=== PATIENT | female | born 1950 | race Caucasian/White ===

== ENCOUNTER → 2024-05-09 06:39 | Day surgery (SDC) | payer OTHER, SELFPAY ==
[2024-05-09 07:56] LABS: Glucose - Point of Care 130 mg/dl (70-99)
== END ==
LOC: GI 06:39
PROVIDERS: ATTENDING PHYSICIAN Internal Medicine
DX: Z12.11 Encounter for screening for malignant neoplasm of colon (principal); Z86.010 Personal history of colon polyps; K64.8 Other hemorrhoids; K64.4 Residual hemorrhoidal skin tags; D12.0 Benign neoplasm of cecum; D12.3 Benign neoplasm of transverse colon; K63.5 Polyp of colon
CPT/HCPCS: 45385; 45380; 88305; 82962

== ENCOUNTER → 2024-10-03 08:23 | Outpatient (REF) | payer OTHER, SELFPAY | LOC: HWWDC 08:23 | PROVIDERS: ATTENDING PHYSICIAN Physician Assistant; FAMILY PHYSICIAN Nurse Practitioner Family | DX: Z12.31 Encounter for screening mammogram for malignant neoplasm of breast (principal); Z78.0 Asymptomatic menopausal state; K76.0 Fatty (change of) liver, not elsewhere classified | CPT/HCPCS: 76700; 77063; 77067; 77080 ==

== ENCOUNTER 2025-03-09 12:58 | Emergency (ER) | payer OTHER, SELFPAY ==
[2025-03-09 13:03] VITALS: BP 141/91
--- NOTE | 2025-03-09 14:02 | ED.MUSCINJ ---
HPI-Injury
General
Chief Complaint: Musculo-Skeletal Complaint
Source: patient
Exam Limitations: none
Time Seen by Provider: 03/09/25 13:58
History of Present Illness-Injury
Initial Injury comments:
75-year-old female presents complaining of right wrist and elbow as well as left elbow pain after missing a step. She fell forward. She struck her left knee but does not have any pain to the left knee. Did not hit her head. She is not
anticoagulated. No other complaints
Past History
Past History
ED Past Medical History: None
ED Past Surgical History: Cholecystectomy
Social History
Tobacco: Non-smoker
Alcohol: None
Drug: None
Personal:
Living: with family
Phy Exam
Physical Exam
Physical Exam:
General: Well-appearing female no acute respiratory distress
HEENT: Normocephalic atraumatic
Musculoskeletal exam: Right wrist slightly tender over the radiocarpal joint. Right elbow slightly tender over the radial aspect of the elbow. She has increased pain with supination of the right wrist. The left elbow is slightly tender posteriorly
Injury Course
Orders/Labs/Results
Orders:
Orders
03/09/25 13:06
Wrist, Right 3 Views [CR Wrist - Right Min 3 Views] Urgent
Comment:
Reason For Exam: fall
03/09/25 14:01
CR Elbow - Left Min 3 Views Urgent
Comment:
Reason For Exam: fall
CR Elbow - Right Min 3 Views Urgent
Comment:
Reason For Exam: fall
MDM/Problems Addressed
Differential Diagnosis Includes:
Fall with right elbow and wrist pain. There is also left elbow pain
X-rays of the right wrist initially ordered through triage were negative but will expand field to the elbow and the contralateral elbow
*Pulse Oximetry
SaO2: 96
Oxygen Mode of Delivery: Room air
Patient hypoxic: no
*Critical Care Note
Total Time (30-74mins, 75-104mins- exclusive of procedures): Not Applicable
Update Note
Update Note:
X-ray right elbow demonstrates findings suspicious of impacted radial neck fracture with associated effusion. X-ray left elbow suggest nondisplaced radial head fracture. Patient was placed in a sling bilaterally. She will follow-up with orthopedic
ED Attending Note
-
Portions of this chart may have been created with voice recognition software.� Occasional wrong word or��sound alike� substitutions may have occurred due to the inherent limitations of voice recognition software.
Discharge Plan
Departure
Patient Disposition: Home (Routine Discharge)
Date of Disposition: 03/09/25
Time of Disposition: 14:38
Patient with high blood pressure during this ER visit?: No
Discharge Problem:
Fracture of proximal end of radius
Prescriptions:
No Action
atorvastatin [Lipitor] 40 MG tablet
40 mg PO QPM
Patient Comments:
dinnertime
metformin 850 MG tablet
850 mg PO QPM
levothyroxine 88 MCG tablet
88 mcg PO DAILY
Vitamin D3:
1,000 units PO QPM
Patient Comments:
dinnertime
mupirocin 1 APPLIC ointment
1 applic intranasal BID Qty: 1 0RF
Patient Comments:
pt performed 3 days prior to surgery BID, last dose was 05/03/21 PM
lidocaine [Aspercreme (lidocaine)] 1 PATCH adhesive patch,medicated
2 patch topical DAILY Qty: 14 0RF
Rx Instructions:
Over the counter. Remote nightly.
Apply to left thigh. Do not place over incision.
aspirin 325 MG tablet
325 mg PO DAILY Qty: 28 0RF
Rx Instructions:
Take daily x4 weeks for blood clot prevention.
docusate sodium 100 MG capsule
100 mg PO BID 0RF
sennosides [senna] 1 TABLET tablet
2 tab PO BID 0RF
acetaminophen 325 MG tablet
650 mg PO Q6H Qty: 60 0RF
Rx Instructions:
Do not exceed >3000 mg daily.
magnesium hydroxide 30 ML suspension
30 ml PO DAILYPRN PRN (Reason: constipation) 0RF
pantoprazole 40 MG tablet,delayed release (DR/EC)
40 mg PO DAILY Qty: 30 0RF
Rx Instructions:
Take nightly while on Meloxicam.
gabapentin 100 MG capsule
200 mg PO TID Qty: 30 0RF
oxycodone 5 MG tablet
5 mg PO Q4HPRN PRN (Reason: moderate-severe pain) Qty: 30 0RF
Rx Instructions:
1 tab moderate pain or 2 if pain severe
Dx total joint replacement
ongoing therapy
meloxicam 15 MG tablet
15 mg PO DAILY Qty: 30 0RF
Rx Instructions:
Take with food.
Do not take within 2 hours of Aspirin.
cefadroxil [Duricef] 500 MG capsule
500 mg PO Q12H Qty: 14 0RF
Rx Instructions:
Start night of discharge and take every 12 hours until finished.
Take with probiotic.
Saccharomyces boulardii 250 MG capsule
250 mg PO BID Qty: 14 0RF
Rx Instructions:
Over the counter. Take while on antibiotic.
If unavailable, choose a different probiotic.
Referrals:
José Miguel Contreras MD [Active, Orthopedics]
Elsa Brandt CRNP [Family Provider]
Activity Restrictions/Additional Instructions:
Use sling to both arms. You may take Tylenol or ibuprofen. Follow-up with orthopedics for further evaluation
Interventions
Interventions:
*Risk Screen - Suicide Last Done: 03/09/25 13:03
*General Assessment Last Done: 03/09/25 13:03
*Neglect/Abuse Screening Last Done: 03/09/25 13:03
*ED COVID-19 Vaccine History Last Done: 03/09/25 13:42
ED-Musculoskeletal Assessment Last Done: 03/09/25 13:41
Discharge Date and Time
Print Language: HUNGARIAN
== END 2025-03-09 15:22 | disposition home or self-care (01) ==
LOC: EMR 12:58
PROVIDERS: EMERGENCY PHYSICIAN Emergency Medicine; FAMILY PHYSICIAN Nurse Practitioner Family
DX: S52.101A Unspecified fracture of upper end of right radius, initial encounter for closed fracture (principal); S52.122A Displaced fracture of head of left radius, initial encounter for closed fracture; S52.124A Nondisplaced fracture of head of right radius, initial encounter for closed fracture; X58.XXXA Exposure to other specified factors, initial encounter; Z90.49 Acquired absence of other specified parts of digestive tract
CPT/HCPCS: 99283; 73080; 73110

== ENCOUNTER 2025-03-14 08:01 | Emergency (ER) | payer OTHER, SELFPAY ==
[2025-03-14 08:04] VITALS: BP 182/89
--- NOTE | 2025-03-14 10:03 | ED.GENMED ---
History of Present Illness
General
Chief Complaint: Musculo-Skeletal Complaint
Source: patient and records
Exam Limitations: none
Time Seen by Provider: 03/14/25 09:53
History of Present Illness
History of Present Illness:
75yo left hand dominant female with a history of type 2 diabetes, hyperlipidemia, and hypothyroidism presenting for evaluation of right wrist pain. Patient was seen in the ED on 03/09/2025 after a fall. X-rays showed an acute fracture of the left
radial head as well as a questionable fracture of the right radial head/neck junction. She was placed in bilateral slings. She saw orthopedics 4 days ago and follow-up. She is here today with worsening throbbing pain of her right wrist and hand.
She is having pain particularly with supination and pronation. Her elbow pain has been controlled. She did have an x-ray of the hand right wrist at her first ED visit which was negative for fractures. No paresthesias. She has been taking Tylenol
at home without much relief.
Past History
Past History
ED Past Medical History: None
ED Past Surgical History: Cholecystectomy
Social History
Tobacco: Non-smoker
Alcohol: None
Drug: None
Personal:
Living: with family
Phy Exam
General Physical Exam
General Presentation: well appearing and no apparent distress
General Skin: warm and dry
General Habitus: normal
General Mental: alert
ENT Exam
ENT Exam: normocephalic
Pulmonary Exam
Pulmonary Exam: no respiratory distress
Neurological Exam
Neurological Exam: alert
Pranav Coma Scale
Eye Opening: Spontaneous
Verbal Response: Oriented
Motor Response: Obeys Commands
GCS Total Score: 15
Musculoskeletal Exam
Musculoskeletal Exam: other (R wrist: Mild swelling noted to the ulnar aspect of the wrist with tenderness. +Pain elicited with supination/pronation. 2+ radial pulse and sensation intact. )
Skin Exam
Skin Exam: normal color and warm/dry
Psychiatric Exam
Psychiatric Exam: normal mood/affect
Course
Orders/Labs/Results
Orders:
Orders
03/14/25 10:02
Oxycodone/Acetaminophen [Percocet 5/325] 1 tablet PO NOW STA
CR Hand - Right Min 3 Views Urgent
Comment:
Reason For Exam: pain
CR Wrist - Right Min 3 Views Urgent
Comment:
Reason For Exam: pain at ulnar aspect of wrist
03/14/25 10:43
Felda Wrist Right-Tx ONCE
Vital Signs
Initial and Last Documented VS:
Initial Vital Signs
Temp Pulse Resp BP Pulse Ox
97.5 F 109 16 182/89 96
03/14/25 08:04 03/14/25 08:04 03/14/25 08:04 03/14/25 08:04 03/14/25 08:04
Last Documented Vital Signs
Temp Pulse Resp BP Pulse Ox
97.5 F 92 16 148/73 95
03/14/25 08:04 03/14/25 10:18 03/14/25 10:18 03/14/25 10:18 03/14/25 10:18
MDM/Problems Addressed
Differential Diagnosis Includes:
75yoF here with R wrist pain. Seen in ED 5 days ago and diagnosed with radial head fx. Here with worsening pain to her wrist. Tenderness noted to the ulnar aspect of the wrist. Pain with supination. RUE is neurovascularly intact. Differential
diagnosis includes: sprain, fracture, radiating pain from elbow fracture
X-rays of R wrist and hand obtained which are negative for acute osseous abnormalities. Wrist brace provided as well as prescription for oxycodone. She has a f/u appt scheduled with orthopedics in 3 days. Patient discharged in stable condition.
*Pulse Oximetry
SaO2: 95
Oxygen Mode of Delivery: Room air
Patient hypoxic: no (96%)
*Critical Care Note
Total Time (30-74mins, 75-104mins- exclusive of procedures): Not Applicable
ED Attending Note
-
Portions of this chart may have been created with voice recognition software.� Occasional wrong word or��sound alike� substitutions may have occurred due to the inherent limitations of voice recognition software.
Discharge Plan
Departure
Patient Disposition: Home (Routine Discharge)
Date of Disposition: 03/14/25
Time of Disposition: 10:43
Patient with high blood pressure during this ER visit?: Yes
Discharge Problem:
Acute pain of right wrist
Instructions: Wrist Sprain ED
Prescriptions:
New
oxycodone 5 mg tablet
5 mg PO Q6H PRN (Reason: Pain) Qty: 12 0RF
No Action
atorvastatin [Lipitor] 40 MG tablet
40 mg PO QPM
Patient Comments:
dinnertime
metformin 850 MG tablet
850 mg PO QPM
levothyroxine 88 MCG tablet
88 mcg PO DAILY
Vitamin D3:
1,000 units PO QPM
Patient Comments:
dinnertime
mupirocin 1 APPLIC ointment
1 applic intranasal BID Qty: 1 0RF
Patient Comments:
pt performed 3 days prior to surgery BID, last dose was 05/03/21 PM
lidocaine [Aspercreme (lidocaine)] 1 PATCH adhesive patch,medicated
2 patch topical DAILY Qty: 14 0RF
Rx Instructions:
Over the counter. Remote nightly.
Apply to left thigh. Do not place over incision.
aspirin 325 MG tablet
325 mg PO DAILY Qty: 28 0RF
Rx Instructions:
Take daily x4 weeks for blood clot prevention.
docusate sodium 100 MG capsule
100 mg PO BID 0RF
sennosides [senna] 1 TABLET tablet
2 tab PO BID 0RF
acetaminophen 325 MG tablet
650 mg PO Q6H Qty: 60 0RF
Rx Instructions:
Do not exceed >3000 mg daily.
magnesium hydroxide 30 ML suspension
30 ml PO DAILYPRN PRN (Reason: constipation) 0RF
pantoprazole 40 MG tablet,delayed release (DR/EC)
40 mg PO DAILY Qty: 30 0RF
Rx Instructions:
Take nightly while on Meloxicam.
gabapentin 100 MG capsule
200 mg PO TID Qty: 30 0RF
oxycodone 5 MG tablet
5 mg PO Q4HPRN PRN (Reason: moderate-severe pain) Qty: 30 0RF
Rx Instructions:
1 tab moderate pain or 2 if pain severe
Dx total joint replacement
ongoing therapy
meloxicam 15 MG tablet
15 mg PO DAILY Qty: 30 0RF
Rx Instructions:
Take with food.
Do not take within 2 hours of Aspirin.
cefadroxil [Duricef] 500 MG capsule
500 mg PO Q12H Qty: 14 0RF
Rx Instructions:
Start night of discharge and take every 12 hours until finished.
Take with probiotic.
Saccharomyces boulardii 250 MG capsule
250 mg PO BID Qty: 14 0RF
Rx Instructions:
Over the counter. Take while on antibiotic.
If unavailable, choose a different probiotic.
Referrals:
Elsa Brandt CRNP [Family Provider]
Jaime Marley MD [Active, Orthopedics]
Activity Restrictions/Additional Instructions:
Wear wrist brace for comfort. Continue taking Tylenol for pain. Take oxycodone only as needed for severe breakthrough pain.
Please follow-up with orthopedics on Monday as previously scheduled.
Interventions
Interventions:
*Risk Screen - Suicide Last Done: 03/14/25 09:32
*General Assessment Last Done: 03/14/25 09:32
*Neglect/Abuse Screening Last Done: 03/14/25 09:32
*ED- Fall Risk Assessment Last Done: 03/14/25 09:32
*ED COVID-19 Vaccine History Last Done: 03/14/25 08:04
*Nursing Disposition Last Done: 03/14/25 10:51
ED-Musculoskeletal Assessment Last Done: 03/14/25 09:33
Discharge Date and Time
Discharge Date/Time: 03/14/25 10:56
Print Language: TURKISH
[2025-03-14] MEDS: PERCOCET 5/325 1 TABLET PO (10:05)
[2025-03-14 10:18] VITALS: BP 148/73
== END 2025-03-14 10:56 | disposition home or self-care (01) ==
LOC: EMR 08:01
PROVIDERS: EMERGENCY PHYSICIAN Emergency Medicine; FAMILY PHYSICIAN Nurse Practitioner Family
DX: M25.531 Pain in right wrist (principal); S52.122D Displaced fracture of head of left radius, subsequent encounter for closed fracture with routine healing; W19.XXXD Unspecified fall, subsequent encounter; E11.9 Type 2 diabetes mellitus without complications; E78.5 Hyperlipidemia, unspecified; E03.9 Hypothyroidism, unspecified
CPT/HCPCS: 99283; 73110; 73130

== ENCOUNTER 2025-04-19 10:21 | Emergency (ER) | payer OTHER, SELFPAY ==
[2025-04-19 10:22] VITALS: BP 171/103
--- NOTE | 2025-04-19 11:52 | ED.GENMED ---
History of Present Illness
General
Chief Complaint: Musculo-Skeletal Complaint
Source: patient
Exam Limitations: none
Time Seen by Provider: 04/19/25 11:29
History of Present Illness
History of Present Illness:
Patient had a fall about 1 month ago. Bilateral elbow pain and right wrist pain. Elbow fractures were suspicious by x-ray of radial heads bilaterally. Wrist x-rays were negative. Patient has been followed by orthopedics. Left arm is doing well.
Mostly complaining of worsening pain at the right wrist the last 3 to 4 days. No fever chills or other complaints
Past History
Past History
ED Past Medical History: None
ED Past Surgical History: Cholecystectomy
Social History
Tobacco: Non-smoker
Alcohol: None
Drug: None
Personal:
Living: with family
Review of Systems
Review of Systems
All Other Systems: Not applicable
Phy Exam
Physical Exam
Physical Exam:
General: Nontoxic appearing in no distress
Skin: Warm and dry, no rash
Neuro: Alert, nontoxic, grossly nonfocal
Psychiatric: Good eye contact and appropriate
Musculoskeletal: Right elbow appears within normal limits. No tenderness over the radial head. No swelling. Right shoulder normal. No arm swelling generally. However mild swelling to the right wrist with no warmth or erythema. Mid wrist
tenderness. No snuffbox tenderness. Has pain with rotation but this is really the movement of the wrist causing wrist pain. It does not appear to be elbow pain
Course
Orders/Labs/Results
Orders:
Orders
04/19/25 11:51
Elbow, Right 3 View [CR Elbow - Right Min 3 Views] Urgent
Comment:
Reason For Exam: Recently. Increased pain
Wrist, Right 3 Views [CR Wrist - Right Min 3 Views] Urgent
Comment:
Reason For Exam: Fall recently/increased pain
04/19/25 14:32
Ketorolac [Toradol] 30 mg IM NOW STA
Vital Signs
Initial and Last Documented VS:
Initial Vital Signs
Temp Pulse Resp BP Pulse Ox
98.4 F 111 16 171/103 96
04/19/25 10:22 04/19/25 10:22 04/19/25 10:22 04/19/25 10:22 04/19/25 10:22
Last Documented Vital Signs
Temp Pulse Resp BP Pulse Ox
98.4 F 111 16 171/103 96
04/19/25 10:22 04/19/25 10:22 04/19/25 10:22 04/19/25 10:22 04/19/25 11:54
MDM/Problems Addressed
Differential Diagnosis Includes:
Symptoms appear very much oriented toward the right wrist. There is mild swelling of the wrist. There is mid joint tenderness. There is no warmth or erythema. Do not think this is an infectious issue. Right elbow appears okay. Good distal
pulses and color. Highly doubt DVT. No general arm swelling. Again very localized to the right wrist.
*Radiology
Radiology exam reviewed: preliminary read by ED provider (Questionable small triquetrum fracture otherwise unremarkable)
*Pulse Oximetry
SaO2: 96
Oxygen Mode of Delivery: Room air
Patient hypoxic: no
*Critical Care Note
Total Time (30-74mins, 75-104mins- exclusive of procedures): Not Applicable
Data Reviewed
Review of Other/Old Records Reveals: Radiology Studies
Update Note
Update Note:
Nothing to support an infectious arthritis. She may have a small triquetral fracture. 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 She has a splint. Pain management and orthopedic follow-up
ED Attending Note
-
Portions of this chart may have been created with voice recognition software.� Occasional wrong word or��sound alike� substitutions may have occurred due to the inherent limitations of voice recognition software.
Discharge Plan
Departure
Patient Disposition: Home (Routine Discharge)
Date of Disposition: 04/19/25
Time of Disposition: 14:33
Patient with high blood pressure during this ER visit?: Yes
Discharge Problem:
Increased wrist pain, Recent elbow fracture, Possible triquetral fracture
Instructions: BLOOD PRESSURE
Prescriptions:
No Action
atorvastatin [Lipitor] 40 MG tablet
40 mg PO QPM
Patient Comments:
dinnertime
metformin 850 MG tablet
850 mg PO QPM
levothyroxine 88 MCG tablet
88 mcg PO DAILY
Vitamin D3:
1,000 units PO QPM
Patient Comments:
dinnertime
mupirocin 1 APPLIC ointment
1 applic intranasal BID Qty: 1 0RF
Patient Comments:
pt performed 3 days prior to surgery BID, last dose was 05/03/21 PM
lidocaine [Aspercreme (lidocaine)] 1 PATCH adhesive patch,medicated
2 patch topical DAILY Qty: 14 0RF
Rx Instructions:
Over the counter. Remote nightly.
Apply to left thigh. Do not place over incision.
aspirin 325 MG tablet
325 mg PO DAILY Qty: 28 0RF
Rx Instructions:
Take daily x4 weeks for blood clot prevention.
docusate sodium 100 MG capsule
100 mg PO BID 0RF
sennosides [senna] 1 TABLET tablet
2 tab PO BID 0RF
acetaminophen 325 MG tablet
650 mg PO Q6H Qty: 60 0RF
Rx Instructions:
Do not exceed >3000 mg daily.
magnesium hydroxide 30 ML suspension
30 ml PO DAILYPRN PRN (Reason: constipation) 0RF
pantoprazole 40 MG tablet,delayed release (DR/EC)
40 mg PO DAILY Qty: 30 0RF
Rx Instructions:
Take nightly while on Meloxicam.
gabapentin 100 MG capsule
200 mg PO TID Qty: 30 0RF
oxycodone 5 MG tablet
5 mg PO Q4HPRN PRN (Reason: moderate-severe pain) Qty: 30 0RF
Rx Instructions:
1 tab moderate pain or 2 if pain severe
Dx total joint replacement
ongoing therapy
meloxicam 15 MG tablet
15 mg PO DAILY Qty: 30 0RF
Rx Instructions:
Take with food.
Do not take within 2 hours of Aspirin.
cefadroxil [Duricef] 500 MG capsule
500 mg PO Q12H Qty: 14 0RF
Rx Instructions:
Start night of discharge and take every 12 hours until finished.
Take with probiotic.
Saccharomyces boulardii 250 MG capsule
250 mg PO BID Qty: 14 0RF
Rx Instructions:
Over the counter. Take while on antibiotic.
If unavailable, choose a different probiotic.
oxycodone 5 mg tablet
5 mg PO Q6H PRN (Reason: Pain) Qty: 12 0RF
Referrals:
Elsa Brandt CRNP [Family Provider]
Activity Restrictions/Additional Instructions:
Continue your current management. Continue using your splint
Call the orthopedist Monday morning for close follow-up
Return sooner with increased pain, increased swelling, fever, numbness tingling or weakness or any other concerning symptoms
Interventions
Interventions:
*Risk Screen - Suicide Last Done: 04/19/25 12:34
*General Assessment Last Done: 04/19/25 12:34
*Neglect/Abuse Screening Last Done: 04/19/25 12:34
*ED- Fall Risk Assessment Last Done: 04/19/25 12:34
ED-Musculoskeletal Assessment Last Done: 04/19/25 12:34
Discharge Date and Time
Print Language: PAKISTANI
[2025-04-19] MEDS: TORADOL 30 MG IM (14:37)
[2025-04-19 14:40] VITALS: BP 154/78
== END 2025-04-19 14:40 | disposition home or self-care (01) ==
LOC: EMR 10:21
PROVIDERS: EMERGENCY PHYSICIAN Emergency Medicine; FAMILY PHYSICIAN Nurse Practitioner Family
DX: M25.522 Pain in left elbow (principal); M25.521 Pain in right elbow; M25.531 Pain in right wrist; Z90.49 Acquired absence of other specified parts of digestive tract; Z87.81 Personal history of (healed) traumatic fracture
CPT/HCPCS: 99284; 96372; 73080; 73110